=== PATIENT | male | born 2005 | race Caucasian/White ===

== ENCOUNTER 2024-01-29 13:56 | Outpatient (CLI) | payer MEDICAID ==
[~2024-01-29] VITALS: Ht 180.3 cm; Wt 83.9 kg
[2024-01-29] MEDS: albuterol 2.5 MG/3 ML nebule NEB PRN (14:39)
[2024-01-29 14:43] VITALS: PULSE 102; RESP 16; O2SAT 99
[2024-01-29 15:00] VITALS: PULSE 98; RESP 15
== END 2024-01-29 23:59 | disposition home or self-care (01) ==
LOC: RT 13:56
PROVIDERS: ATTEND Family Medicine
DX: J45.20 Mild intermittent asthma, uncomplicated (principal)
CPT/HCPCS: 94060; 94729; 94760